=== PATIENT | female | born 1995 | race Caucasian/White ===

== ENCOUNTER 2017-11-21 13:50 | Emergency (ER) | payer OTHER, BC ==
[2017-11-21 15:03] VITALS: BP 117/60
--- NOTE | 2017-11-21 15:11 | UC ---
Cardiac HPI - HPI Summary HPI Summary: 22 yo F with upper chest pain since this am. No SOB, but chest hurts more when she breathes in. No URI sxs, no fever. No calf pain. No injury. Pt smokes e cigarettes. Is not on control. - History of Current Complaint Chief Complaint: UCChestPain Stated Complaint: CHEST PAIN Time Seen by Provider: 11/21/17 15:05 Hx Obtained From: Patient Hx Last Menstrual Period: 11/17/17 Onset/Duration: Sudden Onset, Lasting Days - 1 Timing: Constant Initial Severity: Moderate Current Severity: Moderate Pain Intensity: 6 Chest Pain Location: Upper Sternal Character: Tightness Aggravating Factor(s): Deep Breaths Alleviating Factor(s): Nothing Associated Signs & Symptoms: Positive: Chest Pain. Negative: SOB, Fever, Nausea /Vomiting, Palpitations, Cough, Calf Pain/Swelling - Allergy/Home Medications Allergies/Adverse Reactions: Allergies Allergy/AdvReac Type Severity Reaction Status Date / Time No Known Allergies Allergy Verified 11/21/17 14:04 Home Medications: Home Medications NK [No Home Medications Reported] 11/21/17 [History Confirmed 11/21/17] PMH/Surg Hx/FS Hx/Imm Hx Endocrine History: Thyroid Disease - Luis's - Surgical History Surgical History: None - Family History Known Family History: Positive: Cardiac Disease, Blood Disorder - grandfather is on Eliquis, pt not sure why - Social History Occupation: Student Lives: Dormitory/Roommates Alcohol Use: Occasionally Substance Use Type: None Smoking Status (MU): Current Some Day Smoker Type: Cigarettes, eCigarettes Amount Used/How Often: social use Review of Systems Constitutional: Negative ENT: Negative Respiratory: Negative Cardiovascular: Chest Pain Gastrointestinal: Negative Motor: Negative Neurovascular: Negative Musculoskeletal: Negative Neurological: Negative Psychological: Negative Is Patient Immunocompromised?: No All Other Systems Reviewed And Are Negative: Yes Physical Exam Triage Information Reviewed: Yes Appearance: Well-Appearing, Well-Nourished, Pain Distress Vital Signs: Initial Vital Signs Temp 98.3 F 11/21/17 14:04 Pulse 67 11/21/17 14:04 Resp 20 11/21/17 14:04 BP 117/60 11/21/17 14:04 Pulse Ox 100 11/21/17 14:04 Vital Signs Reviewed: Yes Eyes: Positive: Conjunctiva Clear ENT: Positive: Normal ENT inspection Neck: Positive: Supple, Nontender, No Lymphadenopathy Respiratory: Positive: Chest non-tender, Lungs clear, Normal breath sounds, No respiratory distress, No accessory muscle use Cardiovascular: Positive: RRR, No Murmur, Pulses Normal, Brisk Capillary Refill Abdomen Description: Positive: Nontender, No Organomegaly, Soft. Negative: Distended, Guarding Bowel Sounds: Positive: Present Musculoskeletal: Positive: Strength Intact, ROM Intact, Other: - no calf tenderness Neurological Exam: Normal Psychological Exam: Normal Skin Exam: Normal - Assessment/Plan Course Of Treatment: EKG reviewed, NAchanges. Discussed with pt, pt's boyfriend and pt's mother by phone. Discussed diff dx, including PE and pleurisy. Pt advised to go to ED for full eval. Advised that she may go by private car. Pt and mother agree with plan. - Differential Diagnoses - Chest Pain Differential Diagnosis/HQI/PQRI: Acute RI, ACS, Chest Wall, GI Disease, Lower Respiratory Infection, Pulmonary Embolism, Other: - pleurisy - Clinical Impression Provider Diagnoses: chest pain - Physician Notifications Discussed Patient Care With: Nidia Lay - accepts pt to [facility] ED Time Discussed With Above Provider: 15:00 Instructed by Provider To: MD Will See In ED Discharge - Sign-Out/Discharge Documenting (check all that apply): Discharge/Admit/Transfer - discharge from Urgent care with recommendation to go directly to ED - Discharge Plan Condition: Stable Disposition: HOME Patient Education Materials: Chest Pain (ED) Forms: *School Release Referrals: [facility] [place] [facility] [Outside] - As Soon As Possible No Primary Care Phys,NOPCP [Primary Care Provider] - DEEPALI SANDERS [Nimia, APPLICATION, OTHER] - 2 Days Additional Instructions: We have advised you to go directly to [facility]. We have spoken with the provider there. They are expecting you. Return to urgent care if you have new or worsening symptoms. - Billing Disposition and Condition Condition: STABLE Disposition: HOME
== END 2017-11-21 15:12 | disposition home or self-care (01) ==
LOC: UCCORT 13:50
DX: R07.9 Chest pain, unspecified (principal); F17.290 Nicotine dependence, other tobacco product, uncomplicated
CPT/HCPCS: 93005; 99202; G0463